=== PATIENT | male | born 1955 | race Caucasian/White ===

== ENCOUNTER 2020-07-11 07:31 | Day surgery (SDC) | payer OTHER ==
[~2020-07-11] VITALS: Ht 177.8 cm; Wt 96.5 kg
[~2020-07-11 07:31] MED LIST: BUPIVACAINE/PF 0.5% ONE; EPINEPHRINE 1 MG/ML, 1ML ONE; NONE PER PT
[2020-07-11] MEDS ORDERED: NO HOME MEDS PER PT (08:04)
[2020-07-11 08:06] VITALS: BP 153/94
[2020-07-11] MEDS ORDERED: CHLORHEXIDINE 15 ML UDC ONE (08:08)
[2020-07-11] MEDS ORDERED: FENTANYL PF 250 MCG/5ML ONE (08:11)
[2020-07-11] MEDS ORDERED: MIDAZOLAM 1 MG/ML, 2ML ONE (08:11)
[2020-07-11] MEDS ORDERED: LACTATED RINGERS 1,000 ML IV SCH (08:30)
[2020-07-11] MEDS ORDERED: CHLORHEXIDINE 15 ML UDC PO ONE (08:30)
[2020-07-11] MEDS ORDERED: PROPOFOL 10 MG/ML, 20ML ONE (09:26)
[2020-07-11] MEDS ORDERED: PHENYLEPHRINE 10 MG/ML ONE (09:26)
[2020-07-11] MEDS ORDERED: CEFAZOLIN 1,000 MG ONE (09:26)
[2020-07-11] MEDS ORDERED: ONDANSETRON 2MG/ML, 2ML ONE (09:26)
[2020-07-11] MEDS ORDERED: NEOSPORIN OINT, 15GM ONE (10:25)
[2020-07-11] MEDS ORDERED: ALBUTEROL/IPRATROPIUM 2.5MG/0.5MG, 3 ML NPPB PRN (10:30)
[2020-07-11] MEDS ORDERED: DIAZEPAM 5 MG/ML, 2ML IVPush PRN (10:30)
[2020-07-11] MEDS ORDERED: OXYcodone 5 MG/5 ML ORAL.SOL UDC PO PRN (10:30)
[2020-07-11] MEDS ORDERED: hydrALAzine 20 MG/ML, 1ML IV PRN (10:30)
[2020-07-11] MEDS ORDERED: METOCLOPRAMIDE 5 MG/ML, 2ML IVPush PRN (10:30)
[2020-07-11] MEDS ORDERED: ONDANSETRON 2MG/ML, 2ML IVPush PRN (10:30)
[2020-07-11] MEDS ORDERED: PROMETHAZINE 25 MG/ML, 1ML IVPush PRN (10:30)
[2020-07-11] MEDS ORDERED: HYDROmorphone 1 MG/ML, 1ML INJ IVPush PRN (10:30)
[2020-07-11] MEDS ORDERED: HALOPERIDOL 5 MG/ML IV PRN (10:30)
[2020-07-11] MEDS ORDERED: FENTANYL PF 100 MCG/2ML IV PRN (10:30)
[2020-07-11] MEDS ORDERED: ACETAMINOPHEN 325 MG TABLET PO PRN (10:30)
[2020-07-11] MEDS ORDERED: KETOROLAC 30 MG/1 ML IVPush PRN (10:30)
[2020-07-11] MEDS ORDERED: LABETALOL 5MG/ML, 20ML IV PRN (10:30)
[2020-07-11] MEDS ORDERED: DIPHENHYDRAMINE 50 MG/ML, 1ML IVPush PRN (10:30)
[2020-07-11] MEDS ORDERED: EPHEDRINE 50 MG/ML, 1ML IVPush PRN (10:30)
[2020-07-11] MEDS ORDERED: METOPROLOL 1 MG/ML, 5ML IV PRN (10:30)
[2020-07-11] MEDS ORDERED: ONDANSETRON 2MG/ML, 2ML IV PRN (11:00)
[2020-07-11] MEDS: HYDROcodone/APAP 5/325 TABLET PO PRN ×2 (12:32→14:02)
== END 2020-07-11 15:20 | disposition home or self-care (01) ==
LOC: OUT 07:31
PROVIDERS: ATTEND Urology
DX: N43.40 Spermatocele of epididymis, unspecified (principal); E66.9 Obesity, unspecified; Z20.822 Contact with and (suspected) exposure to COVID-19; Z88.1 Allergy status to other antibiotic agents; Z88.2 Allergy status to sulfonamides; Z88.8 Allergy status to other drugs, medicaments and biological substances; Z72.89 Other problems related to lifestyle; Z68.30 Body mass index [BMI] 30.0-30.9, adult
CPT/HCPCS: 54840; 87635; 88304; 93005; J0171; J0690; J2250; J2370; J2405; J2704; J3010; J7120